=== PATIENT | female | born 1955 | race Hispanic/Latino ===

== ENCOUNTER 2020-04-09 02:54 | Inpatient (IN) | payer OTHER ==
[~2020-04-09] VITALS: Ht 154.9 cm; Wt 61.2 kg
--- OUTSIDE RECORDS SUMMARY | 2020-04-09 02:57 | XMS REPORT | Continuity of Care Document ---
Author Author [facility] t Organization Formerly [facility] Address [address] [place] [address] Phone Unavailable Care Team Providers Care Scourer Name Role Phone EVANS MINOR Attphys Unavailable Payers Payer Name Policy Type Policy Number Effective Date Expiration Date S ource Problems This patient has no known problems. Allergies, Adverse Reactions, Alerts Allergy Name Allergy Type Status Severity Reaction(s) Onset Date Inacti ve Date Treating Clinician Comments Source diclofenac DA Active SV 2018-02-11 00:00:00 [facility] Medications This patient has no known medications. Procedures This patient has no known procedures. Results Test Description Test Time Test Comments Results Result Comments Source COMPREHENSIVE METABOLIC PANEL 2019-01-16 15:33:00 Test Item SODIUM (test code = NA) 136 mmol/L 134-147 N POTASSIUM (test code = K) 3.0 mmol/L 3.4-5.0 L CHLORIDE (test code = CL) 99 mmol/L 100-108 L CARBON DIOXIDE (test code = CO2) 28 mmol/L 21-32 N ANION GAP (test code = GAP) 9.0 GAP calc 4.0-15.0 N GLUCOSE (test code = GLU) 88 MG/DL 70-110 N BLOOD UREA NITROGEN (test code = BUN) 15 MG/DL 7-18 N GLOMERULAR FILTRATION RATE (test code = GFR) >=60 max estimate estG FR >60 CREATININE (test code = CREAT) 0.5 MG/DL 0.6-1.0 L TOTAL PROTEIN (test code = PROT) 7.1 G/DL 6.4-8.2 N ALBUMIN (test code = ALB) 3.8 G/DL 3.4-5.0 N GLOBULIN (test code = GLOB) 3.3 GM/dL ALBUMIN/GLOBULIN RATIO (test code = A/G) 1.2 RATIO 1.2-2.2 N CALCIUM (test code = CA) 8.6 MG/DL 8.5-10.1 N BILIRUBIN TOTAL (test code = BILT) 0.40 MG/DL 0.2-1.2 N SGOT/AST (test code = AST) 21 Unit/L 15-37 N SGPT/ALT (test code = ALT) 29 Unit/L 12-78 N ALKALINE PHOSPHATASE TOTAL (test code = ALKP) 64 Unit/L 45-117 N URINALYSIS [id number] 15:20:00* Test Item Value Reference Range Interpretation Comments UA COLOR (test code = COLU) LIGHT YELL discript YEL/STRAW UA APPEARANCE (test code = APPU) CLEAR discript CLEAR UA GLUCOSE DIPSTICK (test code = DGLUU) NEGATIVE mg/dL NEG UA BILIRUBIN DIPSTICK (test code = BILU) NEGATIVE mg/dL NEG UA KETONE DIPSTICK (test code = KETU) TRACE mg/dL NEG UA SPECIFIC GRAVITY (test code = SGU) <=1.005 SG 1.005-1.030 UA BLOOD DIPSTICK (test code = JUANJO) 1+ mg/DL NEG A UA PH DIPSTICK (test code = SAM) 6.5 pH UNITS 5.0-7.0 UA PROTEIN DIPSTICK (test code = PROU) NEGATIVE mg/dL NEG UA UROBILINIOGEN DIPSTICK (test code = URO) 0.2 mg/dL <2.0 UA NITRITE DIPSTICK (test code = JULIAN) NEGATIVE SCREEN NEG UA LEUKOCYTE ESTERASE DIPSTICK (test code = LEUU) NEGATIVE Leuk/mcL NEGATIVE UA RBC (test code = RBCU) 0-1 #RBC/HPF 0-3 UA SQUAMOUS CELLS (test code = SQU) TRACE /HPF NONE URINALYSIS [id number] 15:11:00* Test Item Value Reference Range Interpretation Comments UA COLOR (test code = COLU) LIGHT YELL discript YEL/STRAW UA APPEARANCE (test code = APPU) CLEAR discript CLEAR UA GLUCOSE DIPSTICK (test code = DGLUU) NEGATIVE mg/dL NEG UA BILIRUBIN DIPSTICK (test code = BILU) NEGATIVE mg/dL NEG UA KETONE DIPSTICK (test code = KETU) TRACE mg/dL NEG UA SPECIFIC GRAVITY (test code = SGU) <=1.005 SG 1.005-1.030 UA BLOOD DIPSTICK (test code = JUANJO) 1+ mg/DL NEG A UA PH DIPSTICK (test code = SAM) 6.5 pH UNITS 5.0-7.0 UA PROTEIN DIPSTICK (test code = PROU) NEGATIVE mg/dL NEG UA UROBILINIOGEN DIPSTICK (test code = URO) 0.2 mg/dL <2.0 UA NITRITE DIPSTICK (test code = JULIAN) NEGATIVE SCREEN NEG UA LEUKOCYTE ESTERASE DIPSTICK (test code = LEUU) NEGATIVE Leuk/mcL NEGATIVE CBC W/AUTO [id number] 15:10:00* Test Item Value Reference Range Interpretation Comments WHITE BLOOD CELL (test code = WBC) 6.6 K/mm3 3.5-11.0 N RED BLOOD CELL (test code = RBC) 4.09 M/mm3 4.70-6.10 L HEMOGLOBIN (test code = HGB) 12.8 G/DL 10.4-14.9 N HEMATOCRIT (test code = HCT) 37.2 % 31.5-44.1 N MEAN CELL VOLUME (test code = MCV) 91.0 Fl 84.5-98.6 N MEAN CELL HGB (test code = MCH) 31.3 pg 27.0-34.2 N MEAN CELL HGB CONCETRATION (test code = MCHC) 34.4 G/DL 31.5-34. 0 H RED CELL DISTRIBUTION WIDTH (test code = RDW) 12.4 SD 11.5-14. 5 N PLATELET COUNT (test code = PLT) 271.0 K/mm3 150-450 N MEAN PLATELET VOLUME (test code = MPV) 9.60 fL 7.0-10.5 N NEUTROPHIL % (test code = NT%) 56.9 % 40-76 N LYMPHOCYTE % (test code = LY%) 32.1 % 20.5-51.1 N MONOCYTE % (test code = MO%) 8.7 % 1.7-9.3 N EOSINOPHIL % (test code = EO%) 1.5 % 0.0-6.0 N BASOPHIL % (test code = BA%) 0.8 % 0.0-2.0 N NEUTROPHIL # (test code = NT#) 3.77 K/mm3 1.8-7.6 N LYMPHOCYTE # (test code = LY#) 2.1 K/mm3 0.6-3.2 N MONOCYTE # (test code = MO#) 0.6 K/mm3 0.3-1.1 N EOSINOPHIL # (test code = EO#) 0.1 K/mm3 0.0-0.4 N BASOPHIL # (test code = BA#) 0.1 K/mm3 0.0-0.1 N MANUAL DIFF REQUIRED (test code = MDIFF) NO DIFF/SCN CRITERIA URINALYSIS W/ [id number] 03:46:00* Test Item Value Reference Range Interpretation Comments COLOR (BEAKER) (test code = 470) Yellow CLARITY (BEAKER) (test code = 469) Clear SPECIFIC GRAVITY UA (BEAKER) (test code = 468) 1.010 1.001-1 .035 PH UA (BEAKER) (test code = 467) 8.0 5.0-8.0 PROTEIN UA (BEAKER) (test code = 464) Negative Negative GLUCOSE UA (BEAKER) (test code = 365) Negative Negative KETONES UA (BEAKER) (test code = 371) Negative Negative BILIRUBIN UA (BEAKER) (test code = 462) Negative Negative BLOOD UA (BEAKER) (test code = 461) Trace Negative A NITRITE UA (BEAKER) (test code = 465) Negative Negative LEUKOCYTE ESTERASE UA (BEAKER) (test code = 466) Negative Negat shilpi UROBILINOGEN UA (BEAKER) (test code = 463) 0.2 mg/dL 0.2-1.0 BACTERIA (BEAKER) (test code = 517) None Seen RBC UA-MANUAL (BEAKER) (test code = 1659) <5 /HPF WBC UA-MANUAL (BEAKER) (test code = 1661) <5 /HPF SQUAMOUS EPITHELIAL MANUAL (BEAKER) (test code = 1663) <5 /HPF SOURCE(BEAKER) (test code = 2795) [id number] 03:19:00* Test Item Value Reference Range Interpretation Comments LIPASE (BEAKER) (test code = 749) 92 U/L 40-240 COMPREHENSIVE METABOLIC [id number] 02:56:00* Test Item Value Reference Range Interpretation Comments TOTAL PROTEIN (BEAKER) (test code = 770) 8.1 gm/dL 6.0-8.5 ALBUMIN (BEAKER) (test code = 1145) 4.8 g/dL 3.5-5.0 ALKALINE PHOSPHATASE (BEAKER) (test code = 346) 82 U/L 30-115 BILIRUBIN TOTAL (BEAKER) (test code = 377) 0.6 mg/dL 0.1-1.2 SODIUM (BEAKER) (test code = 381) 140 meq/L 135-148 POTASSIUM (BEAKER) (test code = 379) 3.3 meq/L 3.6-5.5 L CHLORIDE (BEAKER) (test code = 382) 97 meq/L 98-106 L CO2 (BEAKER) (test code = 355) 29 meq/L 24-32 BLOOD UREA NITROGEN (BEAKER) (test code = 354) 20 mg/dL 10-26 CREATININE (BEAKER) (test code = 358) 0.56 mg/dL 0.50-1.20 GLUCOSE RANDOM (BEAKER) (test code = 652) 147 mg/dL 70-110 H CALCIUM (BEAKER) (test code = 697) 9.6 mg/dL 8.5-10.5 AST (SGOT) (BEAKER) (test code = 353) 30 U/L 5-40 ALT (SGPT) (BEAKER) (test code = 347) 22 U/L 5-50 EGFR (BEAKER) (test code = 1092) 111 mL/min/1.73 sq m ESTIMATED GFR IS NOT ACCURATE CREATININE CLEARANCE IN PREDICTING GLOMERULAR FILTRATION RATE. ESTIMATED GFR IS NOT APPLICABLE FOR DIALYSIS PATIENTS. CBC W/PLT COUNT & AUTO [id number] 02:42:00* Test Item Value Reference Range Interpretation Comments WHITE BLOOD CELL COUNT (BEAKER) (test code = 775) 23.0 10e3/ L 4.0- 10.0 H RED BLOOD CELL COUNT (BEAKER) (test code = 761) 4.86 10e6/ L 4.00-5 .00 HEMOGLOBIN (BEAKER) (test code = 410) 15.1 g/dL 12.0-15.0 H HEMATOCRIT (BEAKER) (test code = 411) 44.0 % 36.0-45.0 MEAN CORPUSCULAR VOLUME (BEAKER) (test code = 753) 90.5 fL 82. 0-99.0 MEAN CORPUSCULAR HEMOGLOBIN (BEAKER) (test code = 751) 31.1 pg 27.0-33.0 MEAN CORPUSCULAR HEMOGLOBIN CONC (BEAKER) (test code = 752) 34.4 g/dL 32.0-36.0 RED CELL DISTRIBUTION WIDTH (BEAKER) (test code = 412) 11.3 % 10.3-14.2 PLATELET COUNT (BEAKER) (test code = 756) 262 10e3/ L 150-430 MEAN PLATELET VOLUME (BEAKER) (test code = 754) 8.2 fL 6.5-10 .5 NEUTROPHILS RELATIVE PERCENT (BEAKER) (test code = 429) 88 % LYMPHOCYTES RELATIVE PERCENT (BEAKER) (test code = 430) 4 % MONOCYTES RELATIVE PERCENT (BEAKER) (test code = 431) 6 % EOSINOPHILS RELATIVE PERCENT (BEAKER) (test code = 432) 1 % BASOPHILS RELATIVE PERCENT (BEAKER) (test code = 437) 1 % NEUTROPHILS ABSOLUTE COUNT (BEAKER) (test code = 670) 20.27 10e3/ L 1.80-8.00 H LYMPHOCYTES ABSOLUTE COUNT (BEAKER) (test code = 414) 0.90 10e3/ L 1.48-4.50 L MONOCYTES ABSOLUTE COUNT (BEAKER) (test code = 415) 1.38 10e3/ L 0. 00-1.30 H EOSINOPHILS ABSOLUTE COUNT (BEAKER) (test code = 416) 0.25 10e3/ L 0.00-0.50 BASOPHILS ABSOLUTE COUNT (BEAKER) (test code = 417) 0.21 10e3/ L 0. 00-0.20 H
--- OUTSIDE RECORDS SUMMARY | 2020-04-09 02:57 | XMS REPORT | Clinical Summary ---
Author Author ROSIE [facility] Address Unknown Phone Unavailable Care Team Providers Care Public Health Clinical Nurse Specialist Name Role Phone Sharpless PCP Allergies Comments Active Allergy Reactions Severity Noted Date Nsaids (Non-Steroidal Swelling 03/03/2017 Anti-Inflammatory Drug) Medications End Date Status Medication Sig Dispensed Refills Start Date Active ammonium lactate 1 0 (LAC-HYDRIN) 12 % lotion application. 6 Active valsartan-hydrochlorothia TAKE ONE 0 / zide (DIOVAN HCT) TABLET BY 6 160-12.5 mg per tablet MOUTH EVERY DAY. Active hyoscyamine 0.125 mg 0 (ANASPAZ,LEVSIN) 0.125 mg every 6 (six) 6 tablet hours as needed . Active linaclotide (LINZESS) 145 TAKE 1 0 / mcg Cap CAPSULE BY 6 MOUTH TWO TIMES A DAY. Active pravastatin (PRAVACHOL) Take 20 mg by 0 20 MG tablet mouth daily . 6 Active pantoprazole (PROTONIX) Take 40 mg by 0 40 MG tablet mouth daily . 6 Active EPINEPHrine (EPIPEN) 0.3 Inject 0.3 1 Device 0 0 mg/0.3 mL AtIn mLs (0.3 mg 6 total) intramuscular ly as needed. Active hyoscyamine (LEVBID) Take 0.375 mg 0 0.375 mg 12 hr tablet by mouth every 12 (twelve) hours as needed for Cramping. Active Problems Problem Noted Date IBS (irritable bowel syndrome) 03/04/2017 Essential hypertension 03/04/2017 Enterocolitis 03/03/2017 Social History Date Tobacco Use Types Packs/Day Years Used Never Smoker Alcohol Use Drinks/Week oz/Week Comments Yes Sex Assigned at Date Recorded Not on file Industry Job Start Date Occupation Not on file Not on file Not on file Travel End Travel History Travel Start No recent travel history available. Last Filed Vital Signs Not on file Plan of Treatment Not on file Results Not on fileafter 04/09/2019 Insurance Payer Benefit Subscriber ID Type Phone Address Plan / Group [employer] - [place] [employer] [place] xxxxxxxxxxx HMO/POS HMO/POS OPEN ACCESS Advance Directives For more information, please contact: [facility] [address] [place] [address] Date Inactivated Comments Code Status Date Activated 03/04/2017 4:42 PM Full Code 03/03/2017 9:25 AM This code status was determined by: Patient
[2020-04-09] MEDS ORDERED: NITROGLYCERIN 2% OINT 1 GM PKT TOP ONE (03:30)
[2020-04-09] MEDS ORDERED: ASPIRIN 81 MG CHEW TAB PO ONE (03:30)
[2020-04-09] MEDS ORDERED: NITROGLYCERIN 2% OINT 1 GM PKT ONE (03:40)
--- NOTE | 2020-04-09 03:51 | Diagnostic Imaging Report ---
EXAMINATION: CXR 1 VIEW - HOPD COMPARISON: None INDICATION: Chest pain (left) ^cp/sob ^N DISCUSSION: Frontal view of the chest obtained at 0343 hours. HEART AND MEDIASTINUM: The cardiomediastinal silhouette is unremarkable. LINES: None. LUNGS: The lungs are well inflated and clear. No pneumonia or pulmonary edema. PLEURA: No pleural effusion or pneumothorax. BONES AND SOFT TISSUES: No focal osseous lesion. The soft tissues are normal. IMPRESSION: No acute cardiopulmonary disease. Signed by: Dr. Aletha Jackson MD on 04/09/2020 3:48 AM
[2020-04-09] MEDS ORDERED: POTASSIUM CHLORIDE 20 MEQ TAB CR PO STA (05:14)
--- NOTE | 2020-04-09 06:12 | Emergency Department Note ---
History of Present Illnes History of Present Illness Chief Complaint: Chest Pain History of Present Illness This is a 64 year old female . was doing well prior to this Historian: Patient Arrival Mode: Car EMS Treatment HUMAN FACTORS ERGONOMIST: Aspirin (81 mg) History limited by: condition of the patient Onset (how long ago): hour(s) Location: substernal Quality: sharp Radiation: non-radiation Severity: moderate Onset quality: sudden Timing of current episode: constant Progression: worsening Context: recent illness, recent surgery, recent immobilization, recent travel, trauma/injury, new medications, hx of DVT/PE Relieving factors: none Exacerbating factors: none Associated symptoms: denies other symptoms Treatments prior to arrival: none Previous service: medications given, tests performed Past Medical/Family History Physician Review I have reviewed the patient's past medical and family history. Any updates have been documented here. Past Medical History Recent Fever: No Clinical Suspicion of Infectio: No New/Unexplained Change in Ment: No Past Medical History: Hypertension, TIA, GERD, Hyperlipedemia Other Surgery: RIGHT SHOULDER Social History Smoking Cessation: Never Smoker Counseling Performed: No Alcohol Use: None Any Illegal Drug Use: No TB Exposure/Symptoms: No Physically hurt or threatened: No Other Last Tetanus: UNK Any Pre-Existing Lines (PICC,: No Is patient up to date on immun: No Last Flu: UNK Last Pneumovax: UNK Review of Systems Review of Systems Constitutional: no symptoms EENTM: no symptoms Cardiovascular: as per HPI Respiratory: as per HPI Gastrointestinal: no symptoms Genitourinary: no symptoms Musculoskeletal: no symptoms Neurological: no symptoms Psychological: no symptoms Endocrine: no symptoms Hematological/Lymphatic: no symptoms Review of other systems All other systems reviewed and negative. Physical Exam Related Data Allergies: Coded Allergies: diclofenac (Verified Allergy, Severe, ANAPHYLAXIS, 04/09/20) prednisone (Unverified Adverse Reaction, Unknown, 04/09/20) Triage Vital Signs Vital Signs Date Time Temp Pulse Resp B/P (MAP) Pulse Ox O2 Delivery O2 Flow Rate FiO2 04/09/20 02:54 98.2 75 20 132/70 97 Vital signs reviewed: Yes Physical Exam CONSTITUTIONAL Constitutional: well-developed, well-nourished HENT HENT: normocephalic, atraumatic, oropharynx clear/moist, nose normal HENT L/R: left ext ear normal, right ext ear normal EYES Eyes: PERRL, conjunctivae normal NECK Neck: ROM normal PULMONARY Pulmonary: effort normal, breath sounds normal CARDIOVASCULAR Cardiovascular: regular rhythm, heart sounds normal, capillary refill normal, normal rate GASTROINTESTINAL Abdominal: soft, nontender, bowel sounds normal GENITOURINARY Genitourinary: exam deferred SKIN Skin: warm, dry MUSCULOSKELETAL Musculoskeletal: ROM normal NEUROLOGICAL Neurological: alert, oriented x 3, no gross motor or sensory deficits PSYCHOLOGICAL Psychological: mood/affect normal, judgement normal Results Laboratory Lab results reviewed: Yes (cbc normal, bmp nL except K=2.7, cardiac enzymes normal) Imaging Imaging results reviewed: Yes (cxr wnl) Diagnostics Tests Diagnostic test(s) reviewed: Yes (ekg= nsr, hr= 73, poor r waves anterior leads, normal st segs, normal t waves) Critical Care Time Subsequent provider I assumed direction of critical care for this patient from another provider of my specialty. Assessment & Plan Reassessment Reassessment time: 05:40 Reassessment no more cp. spoke to dr argueta at 0600hrs and accepts pt for admission Assessment & Plan Final Impression: (1) CHEST PAIN, UNSPECIFIED (2) HYPOKALEMIA Assessment & Plan admission r/o acs Depart Disposition: ADMITTED Last Vital Signs Date Time Temp Pulse Resp B/P (MAP) Pulse Ox O2 Delivery O2 Flow Rate FiO2 04/09/20 05:00 66 16 111/59 97 04/09/20 02:54 98.2 Medications in the ED Aspirin 243 mg ONCE ONCE PO Last administered on 04/09/20at 03:38; Admin Dose 243 MG; Start 04/09/20 at 03:30; Stop 04/09/20 at 03:31; Status UNV Nitroglycerin 1 gm ONCE ONCE TOP Last administered on 04/09/20at 03:38; Admin Dose 1 GM; Start 04/09/20 at 03:30; Stop 04/09/20 at 03:31 Nitroglycerin 1 gm STK-MED ONCE .ROUTE ; Start 04/09/20 at 03:40; Stop 04/09/20 at 03:35; Status DC Potassium Chloride 60 meq NOW STAT PO ; Start 04/09/20 at 05:14; Stop 04/09/20 at 05:15; Status UNV KAREN BALLARD Apr 09, 2020 06:12
[2020-04-09] MEDS: FAMOTIDINE 20 MG/2 ML VIAL IV SCH ×2 (06:15→18:35)
--- NOTE | 2020-04-09 06:20 | NUR ---
INITIALLY CALLED [facility] TO TRANSFER PT TO [facility] AND WAS GIVEN A 60-90 MINUTE ETA TIME, CALLED [facility] AND THEY GAVE US A 15-20 MIN ETA, PT BEING SENT OVER FOR CHEST PAIN WITH TELE MONITORS
--- OUTSIDE RECORDS SUMMARY | 2020-04-09 06:53 | XMS REPORT | Clinical Summary ---
Author Author [facility]IE [facility] Address Unknown Phone Unavailable Care Team Providers Care Auto Washer Name Role Phone Sharpless PCP Allergies Comments [...] Advance Directives For more information, please contact: [facility] [address] [place] [address] Date Inactivated Comments Code Status Date Activated 03/04/2017 4:42 PM Full Code 03/03/2017 9:25 AM This code status was determined by: Patient
--- OUTSIDE RECORDS SUMMARY | 2020-04-09 06:53 | XMS REPORT | Continuity of Care Document ---
Author Author [facility] t Organization [facility] Address [address] [place] [id number] Phone Unavailable Care Team Providers Care Manager Care Management Name Role Phone Cam BALLARD Attsue Unavailable MARKIDESEVANS Attphys Unavailable Payers Payer Name Policy Type Policy Number Effective Date Expiration Date S ource Problems This patient has no known problems. Allergies, Adverse Reactions, Alerts Allergy Name Allergy Type Status Severity Reaction(s) Onset Date Inacti ve Date Treating Clinician Comments Source diclofenac DA Active SV 2018-02-11 00:00:00 [facility] Medications This patient has no known medications. Procedures This patient has no known procedures. Results Test Description Test Time Test Comments Results Result Comments Source CXR 1 VEW - HOPD 2020-04-09 03:47:00 [facility] [address] [place] [address] Patient Name: SHAHANA SIU MR #: [id number] : 1955 Age/Sex: 64/F Req #: [id number] Adm Physician: Ordered by: KAREN BALLARD Report #: [id number] Location: [facility] Room/Bed: Procedure: [id number] HOPD/CXR 1 VEW - HOPD Exam Date: 04/09/20 Exam Time: 0340 REPORT STATUS: Signed [facility]AMIN[facility] COMPARISON: None INDICATION: Chest pain (left) cp/sob N DISCUSSION: Frontal view of the chest obtained at 0343 hours. HEART AND MEDIASTINUM: The cardiomediastinal silhouette is unremarkable. LINES: None. LUNGS: The lungs are well inflated and clear. No pneumonia or pulmonary edema. PLEURA: No pleural effusion or pneumothorax. BONES AND SOFT TISSUES: No focal osseous lesion. The soft tissues are normal. IMPRESSION: No acute cardiopulmonary disease. Signed by: Dr. Tiara Jackson MD on 04/09/2020 3:48 AM Dictated By: TIARA JACKSON MD Electr onically Signed By: TIARA JACKSON MD on 04/09/20347 Transcribed By: AARON on 04/09/20347 COPY TO: KAREN BALLARD COMPREHENSIVE METABOLIC PANEL 2019-01-16 15:33:00 Test Item [...] = ALKP) 64 Unit/L 45-117 N URINALYSIS [id number] 15:20:00* Test Item Value Reference Range Interpretation [...] code = SQU) TRACE /HPF NONE URINALYSIS [id number] 15:11:00* Test Item Value Reference Range Interpretation [...] = LEUU) NEGATIVE Leuk/mcL NEGATIVE CBC W/AUTO [id number] 15:10:00* Test Item Value Reference Range Interpretation [...] = MDIFF) NO DIFF/SCN CRITERIA URINALYSIS W/ [id number] 03:46:00* Test Item Value Reference Range Interpretation [...] <5 /HPF SOURCE(BEAKER) (test code = 2795) [id number] 03:19:00* Test Item Value Reference Range Interpretation Comments LIPASE (BEAKER) (test code = 749) 92 U/L 40-240 COMPREHENSIVE METABOLIC [id number] 02:56:00* Test Item Value Reference Range Interpretation [...] DIALYSIS PATIENTS. CBC W/PLT COUNT & AUTO [id number] 02:42:00* Test Item Value Reference Range Interpretation [...]
[2020-04-09 07:00] VITALS: BP 124/80
--- NOTE | 2020-04-09 07:00 | NUR ---
Received patient from [facility] ER via stretcher. Respiration even and unlabored without SOB. Call light in reach. States slight chest discomfort at this time. Denies SOB. Stewart light in reach.
[2020-04-09] MEDS ORDERED: ASPIRIN 325 MG TAB EC PO SCH (09:00)
[2020-04-09] MEDS ORDERED: ONDANSETRON HCL INJ 2MG/ML 2ML 2 MG/ML VIAL IV PRN (09:15)
[2020-04-09] MEDS ORDERED: HYDRALAZINE HCL 20 MG/ML VIAL IV PRN (09:15)
[2020-04-09] MEDS ORDERED: DOCUSATE SODIUM 100 MG CAP PO PRN (09:15)
[2020-04-09] MEDS ORDERED: MELATONIN 5 MG TABLET PO PRN (09:15)
[2020-04-09] MEDS: ENOXAPARIN SOD INJ 60 MG/0.6 ML SYR SC SCH ×2 (10:03→22:19)
[2020-04-09] MEDS: CARVEDILOL 3.125 MG TAB PO SCH ×2 (10:23→22:20)
[2020-04-09] MEDS ORDERED: SODIUM CHLORIDE 0.9% 1000ML 1,000 ML IV SCH (10:30)
--- NOTE | 2020-04-09 10:53 | Consultation ---
DATE OF CONSULTATION: 04/09/2020 Cardiology Consultation CONSULTING PHYSICIAN: Lucas Cannon M.D., Interventional Cardiology REASON FOR CONSULTATION: Chest pain. HISTORY OF PRESENT ILLNESS: Ms. Mireles is a 64-year-old woman with history of IBS, TIA in 2018, hypertension, and dyslipidemia, who presents with complaints of sudden onset of chest discomfort, midsternal, radiating to right shoulder occurring while at rest, associated with diaphoresis and dyspnea, lasting over 30 minutes, relieved with nitroglycerin, symptoms new onset. The patient has noted, however, during the last week some exertional dyspnea, which is new for her. REVIEW OF SYSTEMS: Twelve-system review, negative except for as noted above. PAST MEDICAL HISTORY: As per HPI. ALLERGIES: DICLOFENAC AND PREDNISONE. SOCIAL HISTORY: Denies smoking, alcohol, or drugs. FAMILY HISTORY: Noncontributory. PHYSICAL EXAMINATION: VITAL SIGNS: Afebrile, heart rate 80, blood pressure 135/78, respiratory rate 18, and O2 saturation 97%. BMI 25.5. GENERAL: In no acute distress, alert and active. NECK: No JVD. CHEST: Clear to auscultation. CARDIOVASCULAR: Regular rate and rhythm. Normal S1, S2. No S3. No S4. No murmurs, no rubs. ABDOMEN: Soft, nontender, and nondistended. Bowel sounds positive. EXTREMITIES: No edema. CARDIOVASCULAR MEDICATIONS: Reviewed. LABORATORY DATA: Studies reviewed. Lab work includes normal troponin, D-dimer, and [facility]. ASSESSMENT AND PLAN: 1. Chest pain concerning for unstable angina. 2. Hypertension. 3. Dyslipidemia. 4. Prior transient ischemic attack. 5. Vasculopath. 6. Irritable bowel syndrome. RECOMMENDATIONS: 1. Aspirin 81 mg daily. 2. Initiate statin therapy. 3. Initiate beta-isaias therapy. 4. Lovenox 1 mg/kg 12 hours. Discussed indications, alternatives, risks, and benefits for coronary angiography and possible intervention. IV fluid starting midnight. Echo ordered and pending. Thank you for the opportunity to participate in the care of Ms. Mireles. Lucas Cannon MD AFV/MODCam /[id number]
--- NOTE | 2020-04-09 11:51 | NUR ---
Notified Dr. Veras as admitting physician.
[2020-04-09 12:00] VITALS: BP 112/73
[2020-04-09] MEDS: NITROGLYCERIN 2% OINT 1 GM PKT TOP SCH ×2 (12:23→18:35)
[2020-04-09 13:00] LABS: CREATINE KINASE MB 0.9 ng/mL (0-5.0)
[2020-04-09] MEDS: ACETAMINOPHEN 325 MG TAB PO PRN ×2 (13:16→22:19)
[2020-04-09 16:46] VITALS: BP 106/75
--- NOTE | 2020-04-09 19:06 | NUR ---
Report given to children's tutor nursery. Respiration even and unlabored. Call light in reach.
--- NOTE | 2020-04-09 19:15 | NUR ---
Patient received sitting up in bed. AAO x 4. Patient had no complaints of pain. Respirations even and non-labored. Patient instructed to call for assistance when needed. Call light within reach.
[2020-04-09 19:44] LABS: POTASSIUM 3.7 mmol/L (3.5-5.1)
[2020-04-09 20:00] VITALS: BP 136/75
[2020-04-09 20:12] LABS: THYROID STIMULATING HORMONE 1.431 uIU/mL (0.350-4.940)
[2020-04-09 20:24] LABS: CREATINE KINASE MB 0.9 ng/mL (0-5.0)
--- NOTE | 2020-04-09 20:58 | NUR ---
Patient informed of upcoming surgical procedure---left and right catheter procedure and selected angiography and NPO status after midnight. Patient verbalized understanding and voluntarily signed the "Disclosure and Consent" form.
[2020-04-09] MEDS ORDERED: ATORVASTATIN 20 MG TAB PO SCH ×2 (21:00)
[2020-04-09 21:47] VITALS: BP 136/75
[2020-04-10] VITALS (20 sets, daily range): BP systolic 111–146; BP diastolic 65–92
[2020-04-10] MEDS: NITROGLYCERIN 2% OINT 1 GM PKT TOP SCH ×4 (00:49→18:10)
[2020-04-10] MEDS: FAMOTIDINE 20 MG/2 ML VIAL IV SCH ×2 (06:11→18:34)
[2020-04-10 06:15] LABS: ALANINE AMINOTRANSFERASE 18 IU/L (0-55); ALBUMIN 3.3 g/dL (3.5-5.0); ALBUMIN/GLOBULIN RATIO 1.3 (0.8-2.0); ALKALINE PHOSPHATASE 58 IU/L (40-150); ANION GAP 11.2 mmol/L (8-16); BLOOD UREA NITROGEN 11 mg/dL (7-26); BUN/CREATININE RATIO 16 (6-25); CALCIUM 8.9 mg/dL (8.4-10.2); CARBON DIOXIDE 25 mmol/L (22-29); CHLORIDE 107 mmol/L (98-107); CREATININE, SERUM 0.68 mg/dL (0.57-1.11); EST GLOMERULAR FILTRATION RATE > 60 ML/MIN (60-); GLUCOSE 99 mg/dL (74-118); POTASSIUM 4.2 mmol/L (3.5-5.1); SODIUM 139 mmol/L (136-145)
[2020-04-10 06:37] LABS: CHOL/HDL RATIO 4.2 (3.0-3.6)
--- NOTE | 2020-04-10 07:45 | NUR ---
ASSUMED CARE. AAOX3. ACYANOTIC. NO DISTRESS NOTED. DENIES CHEST PAIN. CALL LIGHT IN REACH. SIDE RAILS UP X2. BED LOW AND LOCKED.
[2020-04-10] MEDS: ASPIRIN 81 MG CHEW TAB PO SCH (08:37)
[2020-04-10] MEDS: ACETAMINOPHEN 325 MG TAB PO PRN (09:33)
[2020-04-10] MEDS: CARVEDILOL 3.125 MG TAB PO SCH (10:30)
[2020-04-10] MEDS ORDERED: HEPARIN SOD (PORCINE) 1000 UNIT/ML 30ML ONE (15:20)
[2020-04-10] MEDS ORDERED: VERAPAMIL HCL 2.5 MG/ML 2 ML VIAL ONE (15:20)
[2020-04-10] MEDS ORDERED: LIDOCAINE HCL 2% LOCAL 20 ML VIAL ONE (15:21)
[2020-04-10] MEDS ORDERED: SODIUM CHLORIDE 0.9% 1000ML 1,000 ML ONE (15:21)
[2020-04-10] MEDS ORDERED: IOPAMIDOL 370 MG/ML 200 ML INFUS..BTL INJ ONE (15:21)
[2020-04-10] MEDS ORDERED: FENTANYL CITRATE/PF 100MCG/2 ML INJ ONE (15:21)
[2020-04-10] MEDS ORDERED: HEPARIN SOD/SOD CHLORIDE 2,000 ML ONE (15:21)
[2020-04-10] MEDS ORDERED: MIDAZOLAM HCL 2 MG/2 ML VIAL ONE (15:21)
[2020-04-10] MEDS ORDERED: NITROGLYCERIN/D5W 200 MCG/ML 250 ML ONE (15:21)
--- NOTE | 2020-04-10 15:37 | NUR ---
PATIENT CURRENTLY IN PROJECT ENGINEERING MANAGER FOR SCHEDULED PROCEDURE.
--- NOTE | 2020-04-10 16:00 | NUR ---
1600pm RECEIVING NOTE TRICOT KNITTING MACHINE OPERATOR RECOVERY DEPT............................................................... Bedside report received from Mehdi WONG. Identifierx2. Alert oriented and appropriate, PERRLA, respirations even and unlabored to room air. Pulses x4 extremities equal and strong. Pedal pulses PT/DP x4 and marked. Cap fill brisk < 3 sec. Rt TR band NO gross issues pain,pallor,pressure or dysrhythmia Skin warm and dry integrity appears D/I. IV 20g to rt ac presents healthy w/o s/s of infiltration or complaint. Abdomen soft and supple. pt offered toileting. Currently w/o complaint of pain or need. blaise/rn
--- NOTE | 2020-04-10 16:29 | NUR ---
PATIENT CURRENTLY OFF UNIT FOR SCHEDULED HEART CATH
--- NOTE | 2020-04-10 17:00 | NUR ---
1700p Radial COMPRESSION REMOVAL NOTE: Initial Cuff volume 14 cc 1700p -3cc Removed No hematoma/bleeding noted with normal neurovascular function. 1715p -5cc Removed No hematoma/ bleeding noted with normal neurovascular function. 1730p -5cc Removed No hematoma/bleeding noted with normal neurovascular function. Air removal completed. Stasis achieved sterile 2x2,Tegaderm, Coban dressing No hematoma, bleeding noted with normal neurovascular function. Wrist splint in place. Pt instructed on POC. Ds/Rn
--- NOTE | 2020-04-10 17:45 | NUR ---
1745p transfer back to floor care. Report to Yani WONG ,Rt TR site w/o any gross issues pain,pallor,pressure or dysrhythmia.Dr Santana made late rounds TR band off wrote script to give to pt. Placed on chart. given snack tray. Back to baseline orientation.Rt saline lock site intact. Denies CP or SOB. Pt hand LHC no fix ds/rn
--- NOTE | 2020-04-10 18:04 | NUR ---
AAOX3. ACYANOTIC. RESTING IN BED. NO DISTRESS NOTED. NO BLEEDING TO RIGHT WRIST. PALPABLE PEDAL PULSES NOTED BILATERALLY. BED LOW AND LOCKED. SIDE RAILS UP X2. CALL LIGHT IN REACH.
--- NOTE | 2020-04-10 18:45 | Progress Note ---
DATE: 04/10/2020 Cardiology Progress Note SUBJECTIVE: Denies any chest pain or shortness of breath. OBJECTIVE: VITAL SIGNS: Temperature 97.6, heart rate 72, blood pressure 118/78, respiratory rate 17, and O2 saturation 96%. GENERAL: In no acute distress. Alert. NECK: No JVD. CHEST: Clear to auscultation. CARDIOVASCULAR: Regular rate and rhythm. Normal S1 and S2. No S3. No S4. ABDOMEN: Soft. Bowel sounds positive. EXTREMITIES: No edema. CARDIOVASCULAR MEDICATIONS: Reviewed. LABORATORY DATA: Creatinine 0.6. AST 18, ALT 18, and alkaline phosphatase 58. ASSESSMENT AND PLAN: A 64-year-old woman with chest pain, status post coronary angiography revealing luminal irregularities without obstructive coronary artery disease and preserved left ventricular systolic function on echocardiogram and LV-gram. On telemetry with normal sinus rhythm, history of hypertension and dyslipidemia. RECOMMEND: Continue current cardiovascular medications with addition of isosorbide mononitrate 30 mg daily. Okay to discharge from a cardiovascular standpoint with outpatient followup in 2 weeks. MD TRIPP So/LENORE /[id number]
--- NOTE | 2020-04-10 20:36 | Operative Report ---
DATE OF PROCEDURE: 04/10/2020 SURGEON: Lucas Cannon MD PROCEDURE INDICATION: Unstable angina. PROCEDURES PERFORMED: 1. Left heart catheterization. 2. Selective coronary angiography. 3. Monitor sedation. 4. TR band hemostasis. PROCEDURE COMPLICATIONS: None. ESTIMATED BLOOD LOSS: Less than 5 mL. PROCEDURE SUMMARY: After consent was obtained, the patient was prepped and draped in a sterile fashion. The right radial site was locally infiltrated with 2% lidocaine and with ultrasound guidance, access was obtained. A 6-Cro[place] sheath was placed and TIG catheter was used for engagement of left main, right coronary artery and to cross the aortic valve for hemodynamic measurements. The following findings were observed: 1. LV pressure is 161/7 with end-diastolic pressure of 25. 2. Aortic pressure is 157/84. 3. No left ventriculogram was performed. 4. Left main is large in caliber with luminal irregularities gives an LAD and circumflex. 5. The LAD has luminal irregularities throughout, gives a couple of diagonals and multiple septal perforators. 6. The circumflex has luminal irregularities and gives two obtuse marginals. 7. The right coronary artery has luminal irregularities, gives 2 RV marginals and terminal RPDA and RPLV. Of note, the apical most segment of LAD is small in caliber. RECOMMENDATIONS: Medical management and wean TR band, consider Imdur. Lucas Cannon MD AFV/MODL /[id number]
[2020-04-10] MEDS: ISOSORBIDE MONONITRATE 30 MG TAB CR PO SCH (21:30)
[2020-04-11 00:05] VITALS: BP 107/67
[2020-04-11 04:15] VITALS: BP 117/71
[2020-04-11 07:45] VITALS: BP 120/72
[2020-04-11] MEDS: ISOSORBIDE MONONITRATE 30 MG TAB CR PO SCH (08:06)
[2020-04-11] MEDS: ACETAMINOPHEN 325 MG TAB PO PRN (08:07)
[2020-04-11] MEDS: ASPIRIN 81 MG CHEW TAB PO SCH (08:13)
[2020-04-11 09:00] VITALS: BP 120/72
--- NOTE | 2020-04-11 10:44 | NUR ---
AAOX3. ACYANOTIC. RESTING IN BED. REPORTS FEELING "ILL". DR. MORE DISCONTINUED IMDUR AND PLACED ORDERS FOR MORPHINE AND PHENERGAN.
[2020-04-11] MEDS ORDERED: PROMETHAZINE 12.5MG/ NACL 0.9% 12.5 MG/50 ML BAG IV PRN (10:45)
[2020-04-11] MEDS ORDERED: MORPHINE SULFATE 2 MG/ML SYR 1ML IV PRN (10:45)
[2020-04-11 11:10] VITALS: BP 95/72
[2020-04-11] MEDS ORDERED: SODIUM CHLORIDE 0.9% 50ML 0 ML ONE (11:20)
--- NOTE | 2020-04-11 12:59 | Progress Note ---
DATE: 04/11/2020 Cardiology Progress Note SUBJECTIVE: Denies any chest pain or shortness of breath. However, has headache and nausea and vomiting today. OBJECTIVE: VITAL SIGNS: Temperature 97.6, heart rate 68, blood pressure 120/72, respiratory rate 16, and O2 saturation 96%. GENERAL: In no acute distress. Alert. NECK: No JVD. CHEST: Clear to auscultation. CARDIOVASCULAR: Regular rate and rhythm. Normal S1 and S2. No S3. No S4. ABDOMEN: Soft. Bowel sounds positive. EXTREMITIES: No edema. CARDIOVASCULAR MEDICATIONS: Reviewed. Aspirin 81 mg daily. STUDIES: Reviewed. Creatinine 0.68. AST 18 and ALT 18. ASSESSMENT AND PLAN: A 64-year-old woman presents with chest discomfort concerning for unstable angina after which cardiac catheterization was performed revealing luminal irregularities without obstructive coronary artery disease on cath, preserved left ventricular systolic function. RECOMMEND: Continue medical management from symptomatic standpoint. Consider GI evaluation, which could be performed as outpatient as needed, Zofran p.r.n., and analgesics as needed. Can hold Imdur if headaches related to this. Lucas Cannon MD AFV/MODL /[id number]
--- NOTE | 2020-04-11 13:22 | NUR ---
AAOX3. ACYANOTIC. RESTING IN BED WITH EYES CLOSED. PT DENIES NAUSEA. PREPARING TO DISCHARGE PATIENT PER ORDER
[2020-04-11] MEDS ORDERED: NITROGLYCERIN0.4 MG SL (13:33)
--- NOTE | 2020-04-11 23:36 | Discharge Summary ---
PRIMARY CARE DOCTOR: Norma. FINAL DIAGNOSIS: Most likely coronary artery spasm. SECONDARY DIAGNOSES: 1. Hypertension. 2. Dyslipidemia. 3. Prior transient ischemic attack. 4. Irritable bowel syndrome. CONSULTANTS: Dr. Santana, Cardiology. PROCEDURES/STUDIES PERFORMED: 1. Echocardiogram. 2. Left heart catheterization. HISTORY: Per H and P. HOSPITAL COURSE: This is a 64-year-old woman, who initially presented with thought to be unstable angina. Also, her chest pressure was relieved with nitroglycerin paste. However, left heart catheterization was unremarkable. Therefore, most likely, this is due to cardiac coronary artery spasm. I have tried to use Imdur as a prevention. However, the headache is so bad to the point that the patient was nauseated. Therefore, I will just go ahead and give her nitroglycerin sublingual tablet. The patient understands only to use it if she feels that her chest pain is worsen than the potential headache. The patient was seen and examined today. CONDITION ON DISCHARGE: Improved. DISCHARGE MEDICATIONS: Please see medication reconciliation form. MD LEV Hernandez/LENORE /[id number]
== END 2020-04-11 14:25 | disposition home or self-care (01) | DRG 287 ==
LOC: FSED 02:54 → ERHOLD 06:23 → MED/SURG2 07:00
PROVIDERS: ADMIT Internal Medicine; ATTEND Internal Medicine
PROC: 4A023N7 Measurement of Cardiac Sampling and Pressure, Left Heart, Percutaneous Approach (ICD-10-PCS; principal; 2020-04-10)
PROC: B2111ZZ Fluoroscopy of Multiple Coronary Arteries using Low Osmolar Contrast (ICD-10-PCS; 2020-04-10)
DX: I25.111 Atherosclerotic heart disease of native coronary artery with angina pectoris with documented spasm (principal); I10 Essential (primary) hypertension; E78.5 Hyperlipidemia, unspecified; Z86.73 Personal history of transient ischemic attack (TIA), and cerebral infarction without residual deficits; K58.9 Irritable bowel syndrome, unspecified
CPT/HCPCS: 36415; 71045; 80053; 80061; 82550; 82553; 83036; 83735; 84132; 84443; 84484; 85025; 87635; 93005; 93306; 93458; 99152; 99251; 99284; C1894; J1644; J1650; J2001; J2250; J2270; J2405; J2550; J3010; J7030; Q9967